=== PATIENT | female | born 1935 | race Caucasian/White ===

== ENCOUNTER 2016-08-27 10:23 | Emergency (ER) | payer MEDICARE, OTHER ==
[~2016-08-27 10:23] MED LIST: CEFDINIR300 MG PO; ECOTRIN325 MG PO; FENOFIBRATE134 MG PO; K-DUR20 MEQ PO; LASIX40 MG PO; LOPRESSOR50 MG PO; PEPCID20 MG PO; ZESTRIL20 MG PO
[2016-08-27 11:17] LABS: EOSINOPHIL 2.7 % (0-7); HCT 39.9 % (37.0-47.0); HGB 13.2 g/dl (12.5-16.0); LYMPHOCYTE 15.3 % (15-48); MCH 30.3 pg (25.0-31.0); MCHC 33.1 g/dL (32.0-36.0); MCV 91.7 fL (78.0-100.0); MPV 11.8 fL (6.0-9.5); PLT 206 K/uL (150-400); RBC 4.35 M/uL (4.20-5.40); RDW 13.7 % (11.5-14.0); WBC 5.1 K/uL (4.0-10.5)
[2016-08-27 11:53] LABS: BILIRUBIN NEGATIVE (NEGATIVE); BLOOD NEGATIVE Ery/uL (NEGATIVE); CLARITY CLEAR (CLEAR); COLOR YELLOW (YELLOW); GLUCOSE (U) NORMAL (NORMAL); KETONE (U) NEGATIVE (NEGATIVE); LEUKOCYTES NEGATIVE Leu/uL (NEGATIVE); NITRITE NEGATIVE (NEGATIVE); PROTEIN NEGATIVE (NEGATIVE); SPECIFIC GRAVITY <=1.005 (1.001-1.030); UROBILINOGEN 0.2 mg/dL (0.2-1.0)
[2016-08-27 11:53] LABS: PRO-BNP 300 pg/mL (0-450); TROPONIN T < 0.010 ng/mL
== END 2016-08-27 12:24 | disposition home or self-care (01) ==
LOC: FER 10:23
PROVIDERS: Emergency Medicine
DX: I13.0 Hypertensive heart and chronic kidney disease with heart failure and stage 1 through stage 4 chronic kidney disease, or unspecified chronic kidney disease (principal); N18.9 Chronic kidney disease, unspecified; I50.9 Heart failure, unspecified; I25.2 Old myocardial infarction; Z85.528 Personal history of other malignant neoplasm of kidney; Z79.4 Long term (current) use of insulin; Z79.82 Long term (current) use of aspirin; Z79.899 Other long term (current) drug therapy; Z90.5 Acquired absence of kidney; Z95.1 Presence of aortocoronary bypass graft
CPT/HCPCS: 36415; 71010; 80048; 81003; 83880; 84484; 85025; 87088; 93005; J1940